=== PATIENT | female | born 1980 | race Hispanic/Latino ===

== ENCOUNTER 2019-05-13 09:20 | Outpatient (CLI) | payer BC ==
--- NOTE | 2019-05-13 15:42 | Mammography Report ---
DIGITAL SCREENING MAMMOGRAM WITH CAD, 05/13/2019 INDICATION: Routine screening mammography. TECHNIQUE: Digital bilateral 2D mammography was obtained in the craniocaudal and mediolateral obliq ue projections. This examination was interpreted with the benefit of Computer-Aided Detection analysi s. COMPARISON: None. This is a baseline mammogram. FINDINGS: Breast Density: The breasts are heterogeneously dense, which may obscure small masses. A right asymmetry on the CC view and a right asymmetry on the MLO view require additional imaging. No architectural distortion or suspicious calcifications of the right breast. There is no evidence of d ominant mass, suspicious calcifications or architectural distortion in the left breast. IMPRESSION: Right asymmetries requiring additional imaging. Recommend recall for right exaggerated CC and spot compression MLO and CC views and right breast ultrasound if needed. Follow up recommendation: Special View: Spot Category 0: Incomplete. Needs additional imaging evaluation and/or prior mammograms for comparison. A "normal" or negative report should not discourage follow up or biopsy of a clinically significant f inding. A written summary of these findings will be mailed to the patient. The patient will be entered into a mammography reporting system which will generate a reminder letter for the patient's next appointmen t at the appropriate interval. [employer] recommends yearly mammograms starting at age 40 and continuing as l maria dolores as a woman is in good health. Breast MRI is recommended for women with an approximate 20-25% or greater lifetime risk of breast cancer, including women with a strong family history of breast or ova conchita cancer or who have been treated for Hodgkin's disease. Signer Name: Kong Guardado MD Signed: 05/13/2019 3:37 PM Workstation Name: [id number]
== END 2019-05-13 09:21 | disposition home or self-care (01) ==
LOC: SPVWC 09:20
PROVIDERS: ATTEND Obstetrics & Gynecology
DX: Z12.31 Encounter for screening mammogram for malignant neoplasm of breast (principal)
CPT/HCPCS: 77067